=== PATIENT | female | born 1960 | race Caucasian/White ===

== ENCOUNTER → 2017-01-26 19:07 | Outpatient (CLI) | payer MEDICARE | END | disposition home or self-care (01) | LOC: D.MAMMO 16:00 | DX: Z12.31 Encounter for screening mammogram for malignant neoplasm of breast (principal) ==

== ENCOUNTER → 2019-11-27 09:57 | Outpatient (CLI) | payer MEDICARE | END | disposition home or self-care (01) | LOC: D.RAD 09:57 | PROVIDERS: ATTEND Pain Medicine Interventional Pain Medicine | DX: M54.5 Low back pain (principal); M54.2 Cervicalgia; M25.562 Pain in left knee; M25.561 Pain in right knee ==